=== PATIENT | female | born 1940 | race Caucasian/White ===

== ENCOUNTER 2018-08-21 08:10 | Day surgery (SDC) | payer MEDICARE, OTHER ==
[~2018-08-21 08:10] MED LIST: BUPIVACAINE HCL 0.75% INJ/PF (7.5 MG/1 ML) 10 ML SDV OD PRN; CHONDR SU A NA/HYALUR INTRAOC KIT (SURGICARE) ONE; EPINEPHRINE INJ/PF 1 MG/1 ML AMPULE ONE; KETOROLAC TROMETHAMINE 0.45% 4 DROP/0.4 ML DROPERETTE OD PRN; LIDOCAINE 1% INJ-PF (10 MG/ML) 30 ML SDV ONE; LIDOCAINE 4% INJ/PF (40 MG/ML) 5 ML AMPUL OD PRN
[2018-08-21] MEDS: TETRACAINE HCL 0.5% OPH SOLN 0.6 ML DROPERETTE OD PRN ×2 (09:15→09:42)
[2018-08-21] MEDS: CYCLOPENTOLATE 0.2%/PHENYLEPHRINE 1% OPH SOLN 2 ML OD PRN ×3 (09:15→09:35)
[2018-08-21] MEDS: BESIFLOXACIN HCL 0.6% OPH SUSP 5 ML BOTTLE OD PRN ×4 (09:15→10:20)
[2018-08-21] MEDS: TROPICAMIDE 1% OPH SOLN 3 ML OD PRN ×3 (09:15→09:35)
[2018-08-21] MEDS ORDERED: MIDAZOLAM 2 MG/2 ML INJ ONE (09:31)
[2018-08-21] MEDS ORDERED: FENTANYL CITRATE INJ/PF 100 MCG/2 ML AMPUL ONE (09:31)
[2018-08-21] MEDS: DORZOLAMIDE HCL 2%/TIMOLOL MALEAT 0.5% OPH SOLN 10 ML OD PRN ×2 (10:20)
--- NOTE | 2018-08-21 12:03 | [facility] DISCHARGE SUMMARY E ---
[facility] Discharge Summary NAME: KILO CAVAZOS AGE: 77Y ADMITTED: 08/21/2018 DISCHARGED: 08/21/2018 HOSPITAL COURSE: The patient is a 77-year-old lady who underwent uneventful cataract extraction with intraocular lens implant, right eye, on 08/21/2018. She will be discharged to home. She is instructed to resume preoperative medications, take Tylenol as needed for discomfort, to keep her eye shielded, to use Durezol, ketorolac and Besivance at 3 p.m. and 8 p.m., and to follow up in my office in 1 day. DICTATING PHYSICIAN: SHELIA SOSA M.D. [id number] PHY#: [id number] ID: [id number] JOB#: [id number] ACCT: [id number] cc:SHELIA SOSA M.D. >
--- NOTE | 2018-08-21 12:03 | [facility] OPERATIVE REPORT E ---
[facility] Operative Report NAME: KILO CAVAZOS AGE: 77Y DATE OF SURGERY: 08/21/2018 ROOM: PREOPERATIVE DIAGNOSIS: CATARACT, RIGHT EYE. POSTOPERATIVE DIAGNOSIS: CATARACT, RIGHT EYE. OPERATION: Phacoemulsification with posterior chamber intraocular lens, right eye. SURGEON: SHELIA SOSA M.D. ANESTHESIA: Topical with MAC. INDICATIONS FOR SURGERY: Difficulty reading piano music. PROCEDURE: The patient was brought to the Operating Room and placed on the operative table. Following tetracaine drops, topical anesthesia was administered. This consisted of instrument wipe pledgets soaked in a solution of 4% Xylocaine mixed with 0.75% Marcaine in a 1:2 ratio. A 2 x 1 cm pledget was placed in the superior fornix. A 1 x 1 cm pledget was placed in the inferior fornix. The eye was patched shut for 5 minutes. The patch was removed. The eye was sterilely prepped and draped in the usual manner. Lid speculum was placed in the eye. The pledgets were removed. 4-0 black silk sutures were placed around the superior and the inferior rectus muscles to be used as traction. A conjunctival peritomy was made at the 10 o'clock position. Hemostasis was obtained with bipolar cautery. A posterior limbal groove was created using a crescent knife and dissected anteriorly towards the cornea. A sharp point blade was used to create a paracentesis site at the 2 o'clock position. A 2.4 mm keratome was used to enter the anterior chamber through the groove. Viscoelastic was injected into the anterior chamber. An anterior capsulotomy was performed using Utrata forceps in a capsulorrhexis fashion. Hydrodissection and hydrodelineation were performed. Phacoemulsification was performed in azzzgr-nlf-ybcllrk technique. A total of 6.42 CDE phaco time was used. Following this, the I/A unit was used to remove residual cortex. Viscoelastic was injected into the capsular bag. Intraocular lens model ZCBOO, 16.0 diopters, serial number [id number] was placed in the capsular bag. The I/A unit was used to remove residual viscoelastic. The wound was seen to be watertight under high and low pressure, and no sutures were placed. The intraocular lens was well centered. The pressure was adjusted in the eye to normal pressure. The 4-0 black silk sutures and lid speculum were removed. The eye was shielded after Besivance drops were placed. The patient tolerated the procedure well and was sent to the Recovery Room in good condition. DICTATING PHYSICIAN: SHELIA SOSA M.D. DICTATING PHYSICIAN: SHELIA SOSA M.D. [id number] PHY#: [id number] ID: [id number] JOB#: [id number] ACCT: [id number] cc:SHELIA SOSA M.D. >
== END 2018-08-21 10:58 | disposition home or self-care (01) ==
LOC: SC 08:10
PROVIDERS: ATTEND Ophthalmology
DX: H25.813 Combined forms of age-related cataract, bilateral (principal); H40.1131 Primary open-angle glaucoma, bilateral, mild stage; H52.4 Presbyopia; Z79.82 Long term (current) use of aspirin; Z79.899 Other long term (current) drug therapy
CPT/HCPCS: 66984; V2632; J2250; J3490 ×4; A9270; J0171; J3010; 142

== ENCOUNTER 2018-09-18 09:46 | Day surgery (SDC) | payer MEDICARE, OTHER ==
[~2018-09-18 09:46] MED LIST changes: -BUPIVACAINE HCL 0.75% INJ/PF (7.5 MG/1 ML) 10 ML SDV OD PRN; -CHONDR SU A NA/HYALUR INTRAOC KIT (SURGICARE) ONE; -EPINEPHRINE INJ/PF 1 MG/1 ML AMPULE ONE; -KETOROLAC TROMETHAMINE 0.45% 4 DROP/0.4 ML DROPERETTE OD PRN; +KETOROLAC TROMETHAMINE 0.45% 4 DROP/0.4 ML DROPERETTE OS PRN; -LIDOCAINE 1% INJ-PF (10 MG/ML) 30 ML SDV ONE; -LIDOCAINE 4% INJ/PF (40 MG/ML) 5 ML AMPUL OD PRN
[2018-09-18] MEDS: TROPICAMIDE 1% OPH SOLN 3 ML OS PRN ×3 (10:33→10:52)
[2018-09-18] MEDS: CYCLOPENTOLATE 0.2%/PHENYLEPHRINE 1% OPH SOLN 2 ML OS PRN ×3 (10:33→10:52)
[2018-09-18] MEDS: BESIFLOXACIN HCL 0.6% OPH SUSP 5 ML BOTTLE OS PRN ×4 (10:34→11:35)
[2018-09-18] MEDS: TETRACAINE HCL 0.5% OPH SOLN 0.6 ML DROPERETTE OS PRN ×2 (10:35→10:53)
[2018-09-18] MEDS ORDERED: MIDAZOLAM 2 MG/2 ML INJ ONE (10:48)
[2018-09-18] MEDS ORDERED: FENTANYL CITRATE INJ/PF 100 MCG/2 ML AMPUL ONE (10:48)
[2018-09-18] MEDS: LIDOCAINE 4% INJ/PF (40 MG/ML) 5 ML AMPUL OS PRN ×2 (11:02)
[2018-09-18] MEDS: BUPIVACAINE HCL 0.75% INJ/PF (7.5 MG/1 ML) 10 ML SDV OS PRN ×2 (11:02)
[2018-09-18] MEDS: LIDOCAINE 1% INJ-PF (10 MG/ML) 30 ML SDV ONE ×2 (11:20)
[2018-09-18] MEDS: EPINEPHRINE INJ/PF 1 MG/1 ML AMPULE ONE ×2 (11:20)
[2018-09-18] MEDS: CHONDR SU A NA/HYALUR INTRAOC KIT (SURGICARE) ONE ×2 (11:20)
[2018-09-18] MEDS: DORZOLAMIDE HCL 2%/TIMOLOL MALEAT 0.5% OPH SOLN 10 ML OS PRN ×2 (11:35)
--- NOTE | 2018-09-18 12:43 | [facility] DISCHARGE SUMMARY E ---
[facility] Discharge Summary NAME: KILO CAVAZOS AGE: 77Y ADMITTED: 09/18/2018 DISCHARGED: 09/18/2018 HOSPITAL COURSE: The patient is a 77-year-old lady who underwent uneventful cataract extraction with intraocular lens implant left eye on 09/18/2018. She will be discharged to home. She is instructed to resume preoperative medications, to take Tylenol as needed for discomfort, to keep her eye shielded, to use Durezol, ketorolac, and Besivance at 3 p.m. and 8 p.m., and to follow up in my office in 1 day. DICTATING PHYSICIAN: SHELIA SOSA M.D. [id number] PHY#: [id number] ID: [id number] JOB#: [id number] ACCT: [id number] cc:SHELIA SOSA M.D. >
--- NOTE | 2018-09-18 12:43 | [facility] OPERATIVE REPORT E ---
[facility] Operative Report NAME: KILO CAVAZOS AGE: 77Y DATE OF SURGERY: 09/18/2018 ROOM: PREOPERATIVE DIAGNOSIS: Cataract, left eye. POSTOPERATIVE DIAGNOSIS: Cataract, left eye. OPERATION: Phacoemulsification with posterior chamber intraocular lens, left eye. SURGEON: SHELIA SOSA M.D. ANESTHESIA: Topical with MAC. PROCEDURE: The patient was brought to the Operating Room and placed on the operative table. Following tetracaine drops, topical anesthesia was administered. This consisted of instrument wipe pledgets soaked in a solution of 4% Xylocaine mixed with 0.75% Marcaine in a 1:2 ratio. A 2 x 1 cm pledget was placed in the superior fornix. A 1 x 1 cm pledget was placed in the inferior fornix. The eye was patched shut for 5 minutes. The patch was removed. The eye was sterilely prepped and draped in the usual manner. Lid speculum was placed in the eye. The pledgets were removed. 4-0 black silk sutures were placed around the superior and the inferior rectus muscles to be used as traction. A conjunctival peritomy was made at the 10 o'clock position. Hemostasis was obtained with bipolar cautery. A posterior limbal groove was created using a crescent knife and dissected anteriorly towards the cornea. A sharp point blade was used to create a paracentesis site at the 2 o'clock position. A 2.4 mm keratome was used to enter the anterior chamber through the groove. Viscoelastic was injected into the anterior chamber. An anterior capsulotomy was performed using Utrata forceps in a capsulorrhexis fashion. Hydrodissection and hydrodelineation were performed. Phacoemulsification was performed in bxiptt-kuc-focprfn technique. A total of 4.3 CDE phaco time was used. Following this, the I/A unit was used to remove residual cortex. Viscoelastic was injected into the capsular bag. Intraocular lens model ZCB00, 17.0 diopters, serial number [id number] was placed in the capsular bag. The I/A unit was used to remove residual viscoelastic. The wound was seen to be watertight under high and low pressure, and no sutures were placed. The intraocular lens was well centered. The pressure was adjusted in the eye to normal pressure. The 4-0 black silk sutures and lid speculum were removed. The eye was shielded after Besivance drops were placed. The patient tolerated the procedure well and was sent to the Recovery Room in good condition. DICTATING PHYSICIAN: SHELIA SOSA M.D. [id number] PHY#: [id number] ID: [id number] JOB#: [id number] ACCT: [id number] cc:SHELIA SOSA M.D. >
== END 2018-09-18 12:23 | disposition home or self-care (01) ==
LOC: SC 09:46
PROVIDERS: ATTEND Ophthalmology
DX: H25.812 Combined forms of age-related cataract, left eye (principal); Z96.1 Presence of intraocular lens; H40.1131 Primary open-angle glaucoma, bilateral, mild stage; K21.9 Gastro-esophageal reflux disease without esophagitis; Z79.899 Other long term (current) drug therapy; Z79.82 Long term (current) use of aspirin
CPT/HCPCS: 66984; V2632; J2250; J3490 ×4; A9270; J0171; J3010; 142

== ENCOUNTER 2020-02-24 09:38 | Inpatient (IN) | payer MEDICARE, OTHER ==
[2020-02-24] MEDS ORDERED: METHYLPREDNISOLONE INJ 125 MG/2 ML SDV IV ONE (09:49)
[2020-02-24 10:11] LABS: ABSOLUTE BASOPHILS # (AUTO) 0.1 10^3/uL (0.0-0.2); ABSOLUTE EOSINOPHILS # (AUTO) 0.4 10^3/uL (0.0-0.6); ABSOLUTE LYMPHOCYTES (AUTO) 1.6 10^3/uL (0.5-4.7); BASOPHILS % (AUTO) 0.9 % (0-2); EOSINOPHILS % (AUTO) 5.4 % (0-6); HEMATOCRIT 41.2 % (36.0-47.0); HEMOGLOBIN 13.8 g/dL (12.0-15.5); LYMPHOCYTES % (AUTO) 20.2 % (13-45); MEAN CORPUSCULAR HEMOGLOBIN 29.1 pg (27.0-33.4); MEAN CORPUSCULAR HGB CONC 33.5 g/dL (32.0-36.0); MEAN CORPUSCULAR VOLUME 87 fl (80-97); MONOCYTES % (AUTO) 11.9 % (3-13); PLATELET COUNT 315 10^3/uL (150-450); RED BLOOD COUNT 4.75 10^6/uL (3.72-5.28); SEGMENTED NEUTROPHILS % (AUTO) 61.6 % (42-78); TOTAL CELLS COUNTED % (AUTO) 100 %; WHITE BLOOD COUNT 8.1 10^3/uL (4.0-10.5)
--- NOTE | 2020-02-24 10:23 | ER Document Report ---
Entered by STEVIE SALINAS SCRIBE 02/24/20 0945 Acting as scribe for:LUKE LINDSAY MD ED Eye Complaint - General Chief Complaint: Loss of Vision Stated Complaint: NO VISION/LEFT EYE Primary Care Provider: NERY RANDALL MD [Primary Care Provider] - Follow up as needed Mode of Arrival: Ambulatory Information source: Patient Notes: This 79 year old female patient presents to the emergency department today with complaints of a x7-10 day history of floaters in her left eye. She reports that when she went to bed on (02/19) her vision other than the floaters was normal. When she woke up on Monday (02/20) her vision had started to go away and by that afternoon it was completely gone and has remained gone. She does mention that last week she noticed that she had some left sided jaw pain when eating cereal but she denies any other pain. She was seen by her diffuser operator Dr. Elba Ha this morning who sent her to the emergency room for probable temporal arteritis with recommendations for Solu-Medrol 250 mg IV every 6 for 3 days and hospitalist admission. She will consult on the patient. She requested that the patient have the temporal artery biopsy. TRAVEL OUTSIDE OF THE [place] IN LAST 30 DAYS: No - Related Data Allergies/Adverse Reactions: bacitracin [Bacitracin] Allergy (Unknown, Verified 09/17/18 13:57) gramicidin D [From Neosporin] Allergy (Verified 09/12/18 13:22) polymyxin B [From Neosporin] Allergy (Verified 09/12/18 13:22) Past Medical History - General Information source: Patient - Social History Smoking Status: Never Smoker Cigarette use (# per day): No Frequency of alcohol use: None Drug Abuse: None Occupation: retired Lives with: Family Family History: Reviewed & Not Pertinent GI Medical History: Reports: Hx Hiatal Hernia Past Surgical History: Reports: Hx Hysterectomy, Hx Orthopedic Surgery - Right ankle, Hx Tonsillectomy, Other - Benign carotid mass disection. Cataract surgery. Review of Systems - Review of Systems Constitutional: No symptoms reported EENT: See HPI, Other - Left eye vision loss Cardiovascular: No symptoms reported Respiratory: No symptoms reported Gastrointestinal: No symptoms reported Genitourinary: No symptoms reported Female Genitourinary: No symptoms reported Musculoskeletal: No symptoms reported Skin: No symptoms reported Hematologic/Lymphatic: No symptoms reported Neurological/Psychological: No symptoms reported -: Yes All other systems reviewed and negative Physical Exam - Notes Notes: Physical Exam: General: Alert, appears well. HEENT: Normocephalic. Atraumatic. Pupils are dilated bilaterally which was done at her eye doctor prior to arrival. Extraocular movements intact. Oropharynx clear. No tenderness with palpation over the temporal artery. No carotid bruits. Neck: Supple. Non-tender. Respiratory: No respiratory distress. Clear and equal breath sounds bilaterally. Cardiovascular: Regular rate and rhythm. Abdominal: Normal Inspection. Non-tender. No distension. Normal Bowel Sounds. Back: No gross abnormalities. Extremities: Moves all four extremities. Upper extremities: Normal inspection. Normal ROM. Lower extremities: Normal inspection. No edema. Normal ROM. Neurological: Normal cognition. AAOx4. Normal speech. Psychological: Normal affect. Normal Mood. Skin: Warm. Dry. Normal color. Course - Laboratory Result Diagrams: 02/24/20 09:50 02/24/20 09:50 Laboratory results interpreted by me: 02/24/20 02/24/20 02/24/20 09:50 09:50 10:07 ESR 49 H Sodium 136.3 L Creatinine 0.50 L Glucose 115 H C-Reactive Protein 37.5 H Urine Blood SMALL H - EKG Interpretation by Me EKG shows normal: Sinus rhythm, [place], Intervals, ST-T Waves. abnormal: QRS Complexes - Borderline R wave progression in the anterior leads Rate: Normal - 80 Rhythm: NSR [place]/QRS: Left axis deviation - Borderline left axis deviation Discharge - Discharge Clinical Impression: Vision loss of left eye, Jaw claudication, Temporal arteritis Condition: Stable Disposition: ADMITTED INPATIENT Admitting Provider: Elena (Hospitalist) Unit Admitted: Telemetry Referrals: NERY RANDALL MD [Primary Care Provider] - Follow up as needed I personally performed the services described in the documentation, reviewed and edited the documentation which was dictated to the scribe in my presence, and it accurately records my words and actions.
[2020-02-24 10:36] LABS: APPEARANCE,URINE CLEAR; BILIRUBIN,URINE NEGATIVE (NEGATIVE); COLOR,URINE STRAW; GLUCOSE, URINE NEGATIVE (NEGATIVE); KETONES,URINE NEGATIVE (NEGATIVE); LEUKOCYTE ESTERASE,URINE NEGATIVE (NEGATIVE); NITRITE,URINE NEGATIVE (NEGATIVE); PROTEIN,URINE NEGATIVE (NEGATIVE); URINE SPECIFIC GRAVITY 1.003; UROBILINOGEN,URINE NEGATIVE mg/dL (<2.0)
[2020-02-24 10:42] LABS: ALBUMIN 4.1 g/dL (3.5-5.0); ALKALINE PHOSPHATASE 106 U/L (38-126); ANION GAP 9 (5-19); ASPARTATE AMINO TRANSFERASE 26 U/L (14-36); BILIRUBIN,TOTAL 0.5 mg/dL (0.2-1.3); BLOOD UREA NITROGEN 11 mg/dL (7-20); CALCIUM 9.3 mg/dL (8.4-10.2); CARBON DIOXIDE 29 mmol/L (22-30); CHLORIDE 98 mmol/L (98-107); CREATINE KINASE 34 U/L (30-135); GLUCOSE 115 mg/dL (75-110); POTASSIUM 4.2 mmol/L (3.6-5.0); TOTAL PROTEIN 7.8 g/dL (6.3-8.2)
[2020-02-24 10:50] LABS: ERYTHROCYTE SEDIMENTATION RATE 49 mm/hr (0-30)
--- NOTE | 2020-02-24 11:01 | RADIOLOGY REPORT (SQ) ---
EXAM DESCRIPTION: CHEST SINGLE VIEW IMAGES COMPLETED DATE/TIME: 02/24/2020 10:52 am REASON FOR STUDY: Temporal arteritis COMPARISON: None. EXAM PARAMETERS: NUMBER OF VIEWS: One view. TECHNIQUE: Single frontal radiographic view of the chest acquired. RADIATION DOSE: NA LIMITATIONS: None. FINDINGS: LUNGS AND PLEURA: Mild hyperexpansion. Probable chronic changes in the lung bases. Minim al superimposed atelectasis in the left base cannot be excluded. No focal consolidation. No pneumot horax or effusion. MEDIASTINUM AND HILAR STRUCTURES: No masses. Contour normal. HEART AND VASCULAR STRUCTURES: Heart normal in size. Normal vasculature. BONES: No acute findings. HARDWARE: None in the chest. OTHER: No other significant finding. IMPRESSION: Mild hyperexpansion with probable chronic pleural and parenchymal changes in the left ba se. Minimal superimposed left basilar atelectasis cannot be excluded. TECHNICAL DOCUMENTATION: JOB ID: [id number] 2010 [employer]- All Rights Reserved Reading location - IP/workstation name: [email or web address]
[2020-02-24 11:48] LABS: C-REACTIVE PROTEIN 37.5 mg/L (<10.0)
[2020-02-24] MEDS ORDERED: ACETAMINOPHEN 325 MG TABLET PO PRN ×2 (12:54→18:02)
[2020-02-24] MEDS ORDERED: ONDANSETRON HCL INJ/PF 4 MG/2 ML SDV IV PRN (12:54)
--- NOTE | 2020-02-24 13:23 | PDOC H&P ---
History of Present Illness Admission Date/PCP: NERY RANDALL MD Patient complains of: Left eye blindness History of Present Illness: KILO CAVAZOS is a 79 year old female With history of gastric with reflux disease, glaucoma came to the emergency room with complaints of left eye blindness started on Monday. Patient went to bed on night without any problems except for floaters in the left eye woke up on Monday morning with deterioration of the vision in the left eye. By the afternoon vision in the left eye is completely gone. Patient waiting till this morning to see the ballet professor and Dr. Darcie Ha referred the patient to the hospital for admission and possible biopsy of the temporal artery tomorrow. ESR is 49. Patient denies any pain denies any tenderness over the scalp region only complaint is left eye blindness. She has minimal left jaw pain few days ago. Denies any headaches dizziness nausea vomiting's. She never had this problem before. Past medical history include glaucoma and a gastroesophageal reflux disease. Past Medical History Cardiac Medical History: Denies: Myocardial Infarction, Hypertension Pulmonary Medical History: Denies: Asthma Neurological Medical History: Denies: Seizures Renal/ Medical History: Reports: None GI Medical History: Reports: Hiatal Hernia Denies: Hepatitis Psychiatric Medical History: Reports: None Traumatic Medical History: Reports: None Hematology: Denies: Anemia, Sickle Cell Disease Infectious Medical History: Reports: None Past Surgical History Past Surgical History: Reports: Hysterectomy, Orthopedic Surgery - Right ankle, Tonsillectomy, Other - Benign carotid mass disection. Cataract surgery. Denies: Amputation, Mastectomy, Pacemaker Social History Lives with: Family Smoking Status: Never Smoker Electronic Cigarette use?: No Hx Recreational Drug Use: No Hx Prescription Drug Abuse: No - Advance Directive Resuscitation Status: Full Code Family History Family History: Reviewed & Not Pertinent Parental Family History Reviewed: Yes Children Family History Reviewed: Yes Sibling(s) Family History Reviewed.: Yes Medication/Allergy Home Medications: Pantoprazole Sodium 40 mg PO QHS 08/17/18 Brimonidine Tartrate/Timolol [Combigan 0.2%-0.5% Eye Drops] 1 drop OS Q12 02/24/20 Allergies/Adverse Reactions: bacitracin [Bacitracin] Allergy (Unknown, Verified 02/24/20 12:33) gramicidin D [From Neosporin] Allergy (Verified 02/24/20 12:33) polymyxin B [From Neosporin] Allergy (Verified 02/24/20 12:33) lactose Adverse Reaction (Verified 02/24/20 12:33) Review of Systems Constitutional: ABSENT: fever(s) Eyes: PRESENT: visual disturbances, other - Left eye blindness Nose, Mouth, and Throat: PRESENT: mouth pain, sore throat Cardiovascular: ABSENT: edema, orthropnea, palpitations Respiratory: ABSENT: dyspnea, hemoptysis Neurological: ABSENT: abnormal gait, abnormal speech, confusion, dizziness, focal weakness, syncope Psychiatric: ABSENT: anxiety, depression, homidical ideation, suicidal ideation Endocrine: ABSENT: cold intolerance, heat intolerance, polydipsia, polyuria Physical Exam Vital Signs: Temp Pulse Resp BP Pulse Ox 11 L 146/79 H 96 02/24/20 13:01 02/24/20 13:00 02/24/20 13:01 Intake & Output 02/23/20 02/24/20 02/25/20 06:59 06:59 06:59 Weight 67 kg General appearance: PRESENT: no acute distress, cooperative, well-developed Head exam: PRESENT: atraumatic Eye exam: PRESENT: other - Dilated because of the medication patient received in the ophthalmology clinic left eye is completely blind. Mouth exam: PRESENT: moist, tongue midline Teeth exam: PRESENT: poor dentation Neck exam: ABSENT: carotid bruit, JVD, lymphadenopathy, thyromegaly Respiratory exam: PRESENT: decreased breath sounds Cardiovascular exam: PRESENT: RRR. ABSENT: diastolic murmur, rubs, systolic murmur GI/Abdominal exam: PRESENT: normal bowel sounds, soft. ABSENT: distended, guarding, mass, organolmegaly, rebound, tenderness Rectal exam: PRESENT: deferred Neurological exam: PRESENT: alert, awake, oriented to person, oriented to place, oriented to time, oriented to situation, CN II-XII grossly intact. ABSENT: motor sensory deficit Results Laboratory Results: 02/24/20 09:50 02/24/20 09:50 02/24/20 02/24/20 02/24/20 09:50 09:50 10:07 WBC 8.1 RBC 4.75 Hgb 13.8 Hct 41.2 MCV 87 MCH 29.1 MCHC 33.5 RDW 13.0 Plt Count 315 Seg Neutrophils % 61.6 Sodium 136.3 L Potassium 4.2 Chloride 98 Carbon Dioxide 29 Anion Gap 9 BUN 11 Creatinine 0.50 L Est GFR ( Amer) > 60 Glucose 115 H Calcium 9.3 Total Bilirubin 0.5 AST 26 Alkaline Phosphatase 106 C-Reactive Protein 37.5 H Total Protein 7.8 Albumin 4.1 Urine Color STRAW Urine Appearance CLEAR Urine pH 7.0 Ur Specific [place] 1.003 Urine Protein NEGATIVE Urine Glucose (UA) NEGATIVE Urine Ketones NEGATIVE Urine Blood SMALL H Urine Nitrite NEGATIVE Ur Leukocyte Esterase NEGATIVE Urine WBC (Auto) 0 Urine RBC (Auto) 0 02/24/20 02/24/20 09:50 09:50 Creatine Kinase 34 Troponin I < 0.012 Impressions: Chest X-Ray 02/24/20 10:00 IMPRESSION: Mild hyperexpansion with probable chronic pleural and parenchymal changes in the left base. Minimal superimposed left basilar atelectasis cannot be excluded. Assessment and Plan - Diagnosis (1) Temporal arteritis Is this a current diagnosis for this admission?: Yes Plan: 02/24/2020-patient is going to be admitted to telemetry as an inpatient for left- sided temporal arteritis and left eye blindness. Surgical consult was requested for biopsy, patient will be n.p.o. from midnight, patient is going to receive IV Solu-Medrol 125 mg every 6 hours, coronavirus testing will be done. Opht halmology consult was requested. Patient started on GI prophylaxis 40 mg every 12 hours. Patient will be with SCDs no pharmacological prophylaxis initiated because of the impending surgery tomorrow. Patient denies any pain at the time of my examination. Fall precautions are requested. Physical therapy consult was requested. (2) Vision loss of left eye Is this a current diagnosis for this admission?: Yes Plan: 02/24/2020-patient came in with acute left eye vision loss, ophthalmology consult was requested to arrange for the MRI of the brain without contrast, CT of the neck and head. Patient will be scheduled for temporal artery biopsy tomorrow. (3) GERD (gastroesophageal reflux disease) Is this a current diagnosis for this admission?: No Plan: Patient has history of gastroparesis reflux disease placed on 40 mg IV every 12 hours. - Time Anticipated Discharge Disposition: Home with Home Health Anticipated Discharge Timeframe: within 48 hours
--- NOTE | 2020-02-24 14:03 | RADIOLOGY REPORT (SQ) ---
EXAM DESCRIPTION: CTA HEAD IMAGES COMPLETED DATE/TIME: 02/24/2020 1:46 pm REASON FOR STUDY: lt eye blindness COMPARISON: None. TECHNIQUE: Axial images acquired through the brain without and with intravenous contrast. Images re viewed with bone, brain and subdural windows. Additional sagittal and coronal reconstructions were g enerated. Images stored on PACS. CT angio [place] was performed. Thin section postcontrast CT images were reviewed with maxim um intensity projected images of the [place] in multiple orientations. All CT scanners at this facility use dose modulation, iterative reconstruction, and/or weight based d osing when appropriate to reduce radiation dose to as low as reasonably achievable (ALARA). [facility]: Dose Right [facility]: CareDose [facility]: Dose Right [facility]: Teradose 4D [facility]: [employer] CONTRAST TYPE AND DOSE: 70 mL Omnipaque 350- low osmolar. RENAL FUNCTION: BUN 11 creatinine 0.5 RADIATION DOSE: CT Rad equipment meets quality standard of care and radiation dose reduction techniq ues were employed. CTDIvol: 9.3 - 53.2 mGy. DLP: 1477 mGy-cm.. LIMITATIONS: None. FINDINGS: VENTRICLES: Normal size and contour. CEREBRUM: No masses. No hemorrhage. No midline shift. No evidence for acute infarction. Normal gra y/white matter differentiation. No areas of low density in the white matter. CEREBELLUM: No masses. No hemorrhage. No alteration of density. No evidence for acute infarction. No enhancing lesions. EXTRA-AXIAL SPACES: No fluid collections. No enhancing lesions. ORBITS AND GLOBE: No intra- or extraconal masses. Normal contour of globe without masses. CALVARIUM: No fracture. PARANASAL SINUSES: No fluid or mucosal thickening. SOFT TISSUES: No mass or hematoma. OTHER: No other significant finding. CTA COW: [place]: The anterior, middle, posterior cerebral arteries are all patent. No evidence of a neurysm or focal stenosis. POSTERIOR CIRCULATION: The distal vertebral arteries are patent as is the basilar artery. No aneurysm . OTHER: No other significant finding. IMPRESSION: NORMAL BRAIN CT WITH AND WITHOUT CONTRAST. NO CTA EVIDENCE OF STENOSIS OR ANEURYSM OF THE [place]. EVIDENCE OF ACUTE STROKE: NO. TECHNICAL DOCUMENTATION: JOB ID: [id number] Quality ID # [id number]: Final reports with documentation of one or more dose reduction techniques (e.g., Au tomated exposure control, adjustment of the mA and/or kV according to patient size, use of iterative reconstruction technique) 2010 [employer]- All Rights Reserved Reading location - IP/workstation name: [email or web address]
--- NOTE | 2020-02-24 14:09 | RADIOLOGY REPORT (SQ) ---
EXAM DESCRIPTION: CTA NECK IMAGES COMPLETED DATE/TIME: 02/24/2020 1:46 pm REASON FOR STUDY: lt eye blindness COMPARISON: None. TECHNIQUE: Axial dynamic scanning technique with dynamic contrast enhancement through the extra-lifts and cranes inspector nial carotid and vertebral arteries. Multiplanar reconstruction. 3-D MIPS and Volume-rendered imag es acquired at the workstation and saved to PACS. Images are reviewed in soft tissue, bone, lung w indows. All CT scanners at this facility use dose modulation, iterative reconstruction, and/or weight based d osing when appropriate to reduce radiation dose to as low as reasonably achievable (ALARA). [facility]: Dose Right [facility]: CareDose [facility]: Dose Right [facility]: Teradose 4D [facility]: [employer] CONTRAST TYPE AND DOSE: contrast/concentration: Isovue 350.00 mmol/ml; Total Contrast Delivered: 70. 0 ml; Total Saline Delivered: 75.0 ml RENAL FUNCTION: BUN 11 creatinine 0.5 LIMITATIONS: None. FINDINGS: AORTIC ARCH: Normal three-vessel origin. Bilateral subclavian arteries are patent. No d issection. RIGHT CAROTIDS: Patent common, internal and external carotid arteries without suggestion of significa nt stenosis or irregular plaque. No dissection. There is some tortuosity of the ICA. RIGHT VERTEBRAL: Patent. No dissection. LEFT CAROTIDS: Patent common, internal and external carotid arteries without suggestion of significan t stenosis or irregular plaque. No dissection. There is some tortuosity of the ICA. LEFT VERTEBRAL: Patent. No dissection. OTHER: No other significant finding. OTHER: 3-D reconstructions confirm findings. IMPRESSION: NORMAL CTA OF THE EXTRA-CRANIAL CAROTID AND VERTEBRAL ARTERIES. COMMENT: Quality ID #[id number]: Measurements of distal internal carotid diameter were used as the denomina tor for stenosis measurement. TECHNICAL DOCUMENTATION: JOB ID: [id number] Quality ID # [id number]: Final reports with documentation of one or more dose reduction techniques (e.g., Au tomated exposure control, adjustment of the mA and/or kV according to patient size, use of iterative reconstruction technique) 2010 [employer]- All Rights Reserved Reading location - IP/workstation name: [email or web address]
[2020-02-24] MEDS: DEXTROSE 5%-NORMAL SALINE 1,000 ML IV PRN (14:55)
[2020-02-24] MEDS ORDERED: LIDOCAINE 0.5%/EPINEPHRINE INJ 50 ML VIAL INJ PRN (16:32)
[2020-02-24] MEDS ORDERED: LIDOCAINE 0.5% INJ-PF (5 MG/ML) 50 ML SDV INJ PRN (16:39)
[2020-02-24] MEDS ORDERED: METHYLPREDNISOLONE INJ 40 MG/1 ML SDV IV SCH ×2 (18:00)
[2020-02-24] MEDS: METHYLPREDNISOLONE INJ 125 MG/2 ML SDV IV SCH (18:40)
[2020-02-24] MEDS: ACETAMINOPHEN 325 MG TABLET PO PRN ×2 (18:40→22:57)
--- NOTE | 2020-02-24 20:24 | Operative Report ---
Operative Report DATE OF SURGERY: 02/24/20 PREOPERATIVE DIAGNOSIS: Left temporal arteritis POSTOPERATIVE DIAGNOSIS: Same OPERATION: Left temporal artery biopsy SURGEON: ALAN POWELL ANESTHESIA: Local TISSUE REMOVED OR ALTERED: Temporal artery COMPLICATIONS: None ESTIMATED BLOOD LOSS: 5 cc QUANTITATIVE BLOOD LOSS: 5 INTRAOPERATIVE FINDINGS: The artery had some thickening on one end and appears suspicious for arthritis PROCEDURE: After informed consent was obtained patient was placed in supine position with the face turned to the right exposing the left side. A piece of gauze was placed on the left external ear and the area in front of the ear was then prep ped and draped in the usual sterile fashion. Local anesthesia was then infiltrated over the palpated pulsation of the temporal artery. A vertical incision was made about 1 inch long. The artery was gently dissected. The more superior part of the artery appears to be soft but the caudal side appears to be thickened. A at least a 2 cm long part of the artery was then clamped on each side and divided. Specimen was palpated noted to be firm on the caudal and. This is suspicious for arteritis. The 2 ends of the artery were then suture ligated with 2-0 Vicryl. The wound was then closed with running subcuticular closure using 4-0 Vicryl. Steri-Strips placed over the operative site. Needle instrument sponge count were all correct. Patient tolerated procedure well.
--- NOTE | 2020-02-24 21:24 | EKG REPORT ---
SEVERITY:- BORDERLINE ECG - SINUS RHYTHM BORDERLINE LEFT AXIS DEVIATION BORDERLINE R WAVE PROGRESSION, ANTERIOR LEADS IRBBB : Confirmed by: Venice Toledo 24-Feb-2020 21:24:17
[2020-02-24] MEDS: TIMOLOL MALEATE 0.5% OPH SOLN 5 ML OS SCH (22:13)
[2020-02-24] MEDS: PANTOPRAZOLE SODIUM 40 MG VIAL IV SCH (22:14)
[2020-02-24] MEDS: BRIMONIDINE TARTRATE 0.2% OPH SOLN 5 ML OS SCH (22:15)
[2020-02-25] MEDS: METHYLPREDNISOLONE INJ 125 MG/2 ML SDV IV SCH ×4 (00:42→18:34)
[2020-02-25 05:29] LABS: ABSOLUTE LYMPHOCYTES (AUTO) 1.3 10^3/uL (0.5-4.7); ABSOLUTE MONOCYTES (AUTO) 0.2 10^3/uL (0.1-1.4); ABSOLUTE NEUT (AUTO) 10.8 10^3/uL (1.7-8.2); BASOPHILS % (AUTO) 0.2 % (0-2); HEMATOCRIT 37.3 % (36.0-47.0); HEMOGLOBIN 12.6 g/dL (12.0-15.5); LYMPHOCYTES % (AUTO) 10.2 % (13-45); MEAN CORPUSCULAR HEMOGLOBIN 28.8 pg (27.0-33.4); MEAN CORPUSCULAR HGB CONC 33.7 g/dL (32.0-36.0); MEAN CORPUSCULAR VOLUME 85 fl (80-97); MONOCYTES % (AUTO) 1.7 % (3-13); PLATELET COUNT 294 10^3/uL (150-450); RED BLOOD COUNT 4.37 10^6/uL (3.72-5.28); RED CELL DISTRIBUTION WIDTH 13.3 % (11.5-14.0); SEGMENTED NEUTROPHILS % (AUTO) 87.9 % (42-78); TOTAL CELLS COUNTED % (AUTO) 100 %; WHITE BLOOD COUNT 12.3 10^3/uL (4.0-10.5)
[2020-02-25 05:32] LABS: INTERNATIONAL RATION (INR) 1.09; PROTHROMBIN TIME 14.3 SEC (11.4-15.4)
[2020-02-25 05:51] LABS: ALBUMIN 3.5 g/dL (3.5-5.0); ALKALINE PHOSPHATASE 83 U/L (38-126); ANION GAP 9 (5-19); ASPARTATE AMINO TRANSFERASE 21 U/L (14-36); BILIRUBIN,TOTAL 0.3 mg/dL (0.2-1.3); BLOOD UREA NITROGEN 15 mg/dL (7-20); CALCIUM 8.7 mg/dL (8.4-10.2); CARBON DIOXIDE 26 mmol/L (22-30); CHLORIDE 105 mmol/L (98-107); CHOLESTEROL 133.86 mg/dL (0-200); GLUCOSE 176 mg/dL (75-110); POTASSIUM 4.1 mmol/L (3.6-5.0); TOTAL PROTEIN 6.9 g/dL (6.3-8.2); TRIGLYCERIDES 33 mg/dL (<150)
[2020-02-25 06:02] LABS: DIRECT LDL 56 mg/dL (<100)
[2020-02-25] MEDS: PANTOPRAZOLE SODIUM 40 MG VIAL IV SCH ×2 (09:09→23:26)
[2020-02-25] MEDS: BRIMONIDINE TARTRATE 0.2% OPH SOLN 5 ML OS SCH (09:10)
[2020-02-25] MEDS: TIMOLOL MALEATE 0.5% OPH SOLN 5 ML OS SCH ×2 (15:25→23:51)
--- NOTE | 2020-02-25 16:33 | PDOC PROGRESS REPORT ---
Subjective Progress Note for:: 02/25/20 Subjective:: 02/25/2020 Patient admitted for left eye blindness with unclear etiology. Suspected left temporal arteritis and biopsy was done which is pending. Patient started on methylprednisolone IV. Possible patient has experienced an embolic event of cardiogenic origin, echocardiogram ordered today. Patient denies any history of atrial fibrillation or other arrhythmias. She denies taking any anticoagulants. Patient does endorse some bilateral jaw claudication over the past few weeks. Other than left eye blindness she has no new complaints. Of note, she is able to see very bright light when it is shined directly into her left eye, otherwise she is completely blind in this eye. Reportedly, ophthalmology is planning to see the patient today. Reason For Visit: VISION LOSS OF LEFT EYE,JAW CLAUDICATION Physical Exam Vital Signs: Temp Pulse Resp BP Pulse Ox 98.3 F 87 19 141/68 H 97 02/25/20 11:44 02/25/20 11:44 02/25/20 11:44 02/25/20 11:44 02/25/20 11:44 Intake & Output 02/24/20 02/25/20 02/26/20 06:59 06:59 06:59 Intake Total 250 610 Balance 250 610 Weight 70.5 kg General appearance: PRESENT: no acute distress, well-developed, well-nourished Head exam: PRESENT: atraumatic, normocephalic Eye exam: PRESENT: conjunctiva pink. ABSENT: PERRLA - Possible diminished response to light of left pupil, normal response on the right Mouth exam: PRESENT: moist Respiratory exam: PRESENT: clear to auscultation ab. ABSENT: rales, rhonchi, wheezes Cardiovascular exam: PRESENT: RRR. ABSENT: diastolic murmur, rubs, systolic murmur GI/Abdominal exam: PRESENT: normal bowel sounds, soft. ABSENT: distended, guarding, mass, organolmegaly, rebound, tenderness Neurological exam: PRESENT: alert, awake, oriented to person, oriented to place, oriented to time, oriented to situation Psychiatric exam: PRESENT: appropriate affect, normal mood Skin exam: PRESENT: dry, intact, warm Results Laboratory Results: 02/25/20 05:05 02/25/20 05:05 02/25/20 02/25/20 02/25/20 05:05 05:05 05:05 WBC 12.3 H RBC 4.37 Hgb 12.6 Hct 37.3 MCV 85 MCH 28.8 MCHC 33.7 RDW 13.3 Plt Count 294 Seg Neutrophils % 87.9 H Sodium 140.1 Potassium 4.1 Chloride 105 Carbon Dioxide 26 Anion Gap 9 BUN 15 Creatinine 0.48 L Est GFR ( Amer) > 60 Glucose 176 H Calcium 8.7 Magnesium 2.1 Total Bilirubin 0.3 AST 21 Alkaline Phosphatase 83 Total Protein 6.9 Albumin 3.5 Triglycerides 33 Cholesterol 133.86 LDL Cholesterol Direct 56 VLDL Cholesterol 7.0 L HDL Cholesterol 63 TSH 0.37 L 02/24/20 02/24/20 09:50 09:50 Creatine Kinase 34 Troponin I < 0.012 Impressions: Head CTA 02/24/20 00:00 IMPRESSION: NORMAL BRAIN CT WITH AND WITHOUT CONTRAST. NO CTA EVIDENCE OF STENOSIS OR ANEURYSM OF THE [place]. EVIDENCE OF ACUTE STROKE: NO. Neck CTA 02/24/20 00:00 IMPRESSION: NORMAL CTA OF THE EXTRA-CRANIAL CAROTID AND VERTEBRAL ARTERIES. Chest X-Ray 02/24/20 10:00 IMPRESSION: Mild hyperexpansion with probable chronic pleural and parenchymal changes in the left base. Minimal superimposed left basilar atelectasis cannot be excluded. Assessment and Plan - Diagnosis (1) Vision loss of left eye Is this a current diagnosis for this admission?: Yes Plan: 02/24/2020-patient came in with acute left eye vision loss, ophthalmology consult was requested to arrange for the MRI of the brain without contrast, CT of the neck and head. Patient will be scheduled for temporal artery biopsy tomorrow. 02/25/2020 Possible cardiogenic embolic source, echocardiogram ordered Telemetry to monitor for arrhythmias Ophthalmology consulted, to see patient today CT head/neck with contrast did not show any focal stenoses May benefit from rheumatology consult outpatient (2) GERD (gastroesophageal reflux disease) Is this a current diagnosis for this admission?: No Plan: Patient has history of gastroparesis reflux disease, given IV PPI. (3) Temporal arteritis Is this a current diagnosis for this admission?: Yes Plan: 02/24/2020-patient is going to be admitted to telemetry as an inpatient for left- sided temporal arteritis and left eye blindness. Surgical consult was requested for biopsy, patient will be n.p.o. from midnight, patient is going to receive IV Solu-Medrol 125 mg every 6 hours, coronavirus testing will be done. Ophthalmology consult was requested. Patient started on GI prophylaxis 40 mg every 12 hours. Patient will be with SCDs no pharmacological prophylaxis initiated because of the impending surgery tomorrow. Patient denies any pain at the time of my examination. Fall precautions are requested. Physical therapy consult was requested. 02/25/2020 Suspected diagnosis, biopsy done pending Methylprednisolone IV continues - Time Time Spent with patient: 15-24 minutes Medications reviewed and adjusted accordingly: Yes Anticipated Discharge Disposition: Home, Self Care Anticipated Discharge Timeframe: within 48 hours - Inpatient Certification Based on my medical assessment, after consideration of the patient's comorbidities, presenting symptoms, or acuity I expect that the services needed warrant INPATIENT care.: Yes I certify that my determination is in accordance with my understanding of Medicare's requirements for reasonable and necessary INPATIENT services [42 CFR 412.3e].: Yes Medical Necessity: Significant Comorbidiites Make Outpatient Treatment Too Risky, Need Close Monitoring Due to Risk of Patient Decompensation, Risk of Complication if Not Cared For in Hospital, Risk of Diagnosis Which Will Require Inpatient Eval/Care/Monitoring
--- NOTE | 2020-02-25 17:19 | PDOC CONSULTATION ---
Consultation Consult Date: 02/25/20 Provider Consulted: SHELIA SOSA Consult reason:: Loss of vision History of Present Illness Admission Date/PCP: 02/24/20 13:11 REY KRUEGER MD History of Present Illness: KILO CAVAZOS is a 79 year old female Who presented with total loss of vision in her left eye 1 day ago to my office. She had been experiencing flashes and floaters over the last week and was examined on 02/20/2020 in my office with no new eye findings and normal vision in her left eye. On 814 she experienced total loss of vision in the left eye and contacted my office on 02/23. She denied headaches myalgias fever chills loss of appetite and weight loss. She did complain of mild jaw claudication with eating cereal over the last week. On examination she was found to have bare light perception vision in the left eye and normal vision in the right eye. 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 She was sent to the ER with a preliminary diagnosis of temporal arteritis and admitted to the hospital. ESR was 49 and CR P was 37.5 she has had a normal neck CTA and head CT while in the hospital. A temporal artery biopsy was performed today the results of which are pending. She was placed on an initial dose of 250 mg IV Solu-Medrol continued on 125 mg every 6 hours. Today she denies any pain or change in vision in her right eye her left eye vision continues to be poor and very light perception. She has no new neurologic complaints. Past Medical History Cardiac Medical History: Reports: None Denies: Myocardial Infarction, Hypertension Pulmonary Medical History: Reports: None Denies: Asthma EENT Medical History: Reports: Cataracts, Eyes - Mild primary open angle glaucoma on Combigan drops twice daily Neurological Medical History: Reports: None Denies: Seizures Endocrine Medical History: Reports: None Renal/ Medical History: Reports: None Malignancy Medical History: Reports: None GI Medical History: Reports: Gastroesophageal Reflux Disease, Hiatal Hernia Denies: Hepatitis Musculoskeltal Medical History: Reports: None Skin Medical History: Reports: None Psychiatric Medical History: Reports: None, Depression Traumatic Medical History: Reports: None Hematology: Reports: None Denies: Anemia, Sickle Cell Disease Infectious Medical History: Reports: None Past Surgical History Past Surgical History: Reports: Hysterectomy, Orthopedic Surgery - Right ankle, Tonsillectomy, Other - Benign carotid mass disection. Cataract surgery. Denies: Amputation, Mastectomy, Pacemaker Social History Lives with: Family Smoking Status: Never Smoker Electronic Cigarette use?: No Frequency of Alcohol Use: None Hx Recreational Drug Use: No Drugs: None Hx Prescription Drug Abuse: No - Advance Directive Resuscitation Status: Full Code Family History Family History: Reviewed & Not Pertinent Parental Family History Reviewed: Yes Children Family History Reviewed: Unknown Sibling(s) Family History Reviewed.: Unknown Medication/Allergy Home Medications: Pantoprazole Sodium 40 mg PO QHS 08/17/18 Brimonidine Tartrate/Timolol [Combigan 0.2%-0.5% Eye Drops] 1 drop OS Q12 02/24/20 Allergies/Adverse Reactions: bacitracin [Bacitracin] Allergy (Unknown, Verified 02/24/20 12:33) gramicidin D [From Neosporin] Allergy (Verified 02/24/20 12:33) polymyxin B [From Neosporin] Allergy (Verified 02/24/20 12:33) lactose Adverse Reaction (Verified 02/24/20 12:33) Physical Exam Vital Signs: Temp Pulse Resp BP Pulse Ox 98.3 F 87 19 141/68 H 97 02/25/20 11:44 02/25/20 11:44 02/25/20 11:44 02/25/20 11:44 02/25/20 11:44 Intake & Output 02/24/20 02/25/20 02/26/20 06:59 06:59 06:59 Intake Total 250 610 Balance 250 610 Weight 70.5 kg General appearance: PRESENT: no acute distress Head exam: PRESENT: normocephalic Eye exam: PRESENT: EOMI, other - Left APD, vision 20/25 OD near Results Laboratory Results: 02/25/20 05:05 02/25/20 05:05 02/25/20 02/25/20 02/25/20 05:05 05:05 05:05 WBC 12.3 H RBC 4.37 Hgb 12.6 Hct 37.3 MCV 85 MCH 28.8 MCHC 33.7 RDW 13.3 Plt Count 294 Seg Neutrophils % 87.9 H Sodium 140.1 Potassium 4.1 Chloride 105 Carbon Dioxide 26 Anion Gap 9 BUN 15 Creatinine 0.48 L Est GFR ( Amer) > 60 Glucose 176 H Calcium 8.7 Magnesium 2.1 Total Bilirubin 0.3 AST 21 Alkaline Phosphatase 83 Total Protein 6.9 Albumin 3.5 Triglycerides 33 Cholesterol 133.86 LDL Cholesterol Direct 56 VLDL Cholesterol 7.0 L HDL Cholesterol 63 TSH 0.37 L 02/24/20 02/24/20 09:50 09:50 Creatine Kinase 34 Troponin I < 0.012 Impressions: Head CTA 02/24/20 00:00 IMPRESSION: NORMAL BRAIN CT WITH AND WITHOUT CONTRAST. NO CTA EVIDENCE OF STENOSIS OR ANEURYSM OF THE [place]. EVIDENCE OF ACUTE STROKE: NO. Neck CTA 02/24/20 00:00 IMPRESSION: NORMAL CTA OF THE EXTRA-CRANIAL CAROTID AND VERTEBRAL ARTERIES. Chest X-Ray 02/24/20 10:00 IMPRESSION: Mild hyperexpansion with probable chronic pleural and parenchymal changes in the left base. Minimal superimposed left basilar atelectasis cannot be excluded. Assessment & Plan - Diagnosis (1) Temporal arteritis Is this a current diagnosis for this admission?: Yes Plan: I feel that this time that all diagnostic tests as well as labs and physical exam are consistent with a diagnosis of temporal arteritis. We are awaiting the pathology report of the temporal artery biopsy however even if this is negative I would continue with the presumptive diagnosis of temporal arteritis. due to he r severe vision loss the recommendation is for 250 mg of Solu-Medrol every 6 hours for 3 days followed by 80 mg of oral prednisone on discharge. I would like to see Ms. Eric hill in 1 week and sooner should she note any changes in her right eye. On discharge she will need to have follow-up with her primary care provider Rey Krueger and subsequently a rheumatology consult after discharge. Please contact me if you have any additional questions please schedule a follow-up appointment in my office [phone] for 1 week following discharge.
--- NOTE | 2020-02-25 17:59 | PDOC PROGRESS REPORT ---
Subjective Progress Note for:: 02/25/20 Subjective:: No pains from the preauricular incision site for temporal artery biopsy. Patient claims his vision in the left eye may be slightly better since he does not see all black but rather with some light. Reason For Visit: VISION LOSS OF LEFT EYE,JAW CLAUDICATION Physical Exam Vital Signs: Temp Pulse Resp BP Pulse Ox 98.3 F 87 19 141/68 H 97 02/25/20 11:44 02/25/20 11:44 02/25/20 11:44 02/25/20 11:44 02/25/20 11:44 Intake & Output 02/24/20 02/25/20 02/26/20 06:59 06:59 06:59 Intake Total 250 610 Balance 250 610 Weight 70.5 kg Exam: Operative site looks clean and dry with no swelling no redness. Steri-Strips in place. Results Laboratory Results: 02/25/20 05:05 02/25/20 05:05 02/25/20 02/25/20 02/25/20 05:05 05:05 05:05 WBC 12.3 H RBC 4.37 Hgb 12.6 Hct 37.3 MCV 85 MCH 28.8 MCHC 33.7 RDW 13.3 Plt Count 294 Seg Neutrophils % 87.9 H Sodium 140.1 Potassium 4.1 Chloride 105 Carbon Dioxide 26 Anion Gap 9 BUN 15 Creatinine 0.48 L Est GFR ( Amer) > 60 Glucose 176 H Calcium 8.7 Magnesium 2.1 Total Bilirubin 0.3 AST 21 Alkaline Phosphatase 83 Total Protein 6.9 Albumin 3.5 Triglycerides 33 Cholesterol 133.86 LDL Cholesterol Direct 56 VLDL Cholesterol 7.0 L HDL Cholesterol 63 TSH 0.37 L 02/24/20 02/24/20 09:50 09:50 Creatine Kinase 34 Troponin I < 0.012 Impressions: Head CTA 02/24/20 00:00 IMPRESSION: NORMAL BRAIN CT WITH AND WITHOUT CONTRAST. NO CTA EVIDENCE OF STENOSIS OR ANEURYSM OF THE [place]. EVIDENCE OF ACUTE STROKE: NO. Neck CTA 02/24/20 00:00 IMPRESSION: NORMAL CTA OF THE EXTRA-CRANIAL CAROTID AND VERTEBRAL ARTERIES. Chest X-Ray 02/24/20 10:00 IMPRESSION: Mild hyperexpansion with probable chronic pleural and parenchymal changes in the left base. Minimal superimposed left basilar atelectasis cannot be excluded. Assessment & Plan - Time Critical Time spent with patient: 15-24 minutes Anticipated Discharge Disposition: Home, Self Care Anticipated Discharge Timeframe: within 72 hours - Plan Summary Plan Summary: Patient is first postop day left temporal artery biopsy at bedside done under local anesthesia. Awaiting biopsy results. Patient started on IV steroids yesterday. We will sign off. I told the patient to be followed in the surgical clinic in 2weeks for wound check.
[2020-02-25] MEDS: DEXTROSE 5%-NORMAL SALINE 1,000 ML IV PRN (18:33)
--- NOTE | 2020-02-25 19:24 | XCELERA REPORT ---
[address] [address] Transthoracic Echocardiogram Report Name: KILO CAVAZOS Age: 79 yrs Gender: Female : 1940 Patient Status: Inpatient Patient Location: [address] [place], [place] [address] Study Date: 02/25/2020 09:25 AM Height: 64 in Weight: 155 lb BSA: 1.8 m2 Procedure: A complete two-dimensional transthoracic echocardiogram was performed (2D, M-mode, spectral and color flow Doppler). The study was technically adequate with some images being suboptimal in quality. Reason For Study: embolic cva Ordering Physician: ANASTACIO RICHARD Performed By: Mirian Wilson Interpretation Summary LEFT VENTRICLE: LV Systolic function: LVEF is felt to be within normal limits. Best estimate is approximately LVEF is 60 %. LV Diastolic Function: Grade II diastolic dysfunction noted. Wall motion : No definite regional wall motion abnormalities are noted. Left ventricular chamber size : is within normal limit. Left ventricular wall thickness : is increased indicative of Mild LVH. INTERVENTRICULAR SEPTUM: no evidence of VSD noted. No asymmetric hypertrophy noted. RIGHT VENTRICLE: RV systolic function : is felt to be within normal limit. Right Ventricle Size : borderline dilated. LEFT ATRIUM size : Within normal limit RIGHT ATRIUM size : is within normal limit. INTER ATRIAL SEPTUM : No definite atrial septal defect noted however a small PFO could be missed. AORTIC ROOT : seems to be within normal limits. Ascending aorta is not well visualized. INFERIOR VENA CAVA: was not well visualized. VALVES: MITRAL VALVE : Leaflets are mildly thickened. Mobility seems to be within normal limits. Mitral Regurgitation : Trace mitral regurgitation is noted. Mitral Stenosis: No mitral stenosis noted. Mitral valve prolapse : none noted. AORTIC VALVE: seems to be trileaflet with thickening but adequate excursion. Aortic stenosis : No aortic stenosis noted. Aortic regurgitation : No aortic incompetence noted. TRICUSPID VALVE : mobility and structures within normal limit. Tricuspid stenosis : no tricuspid stenosis noted. Tricuspid regurgitation : Trace tricuspid regurgitation noted. Estimated RVSP : tricuspid jet envelope not well defined to measure RV systolic pressure accurately. PULMONARY VALVE : was not well visualized but no significant abnormalities suspected. Pulmonary stenosis : no significant pulmonary stenosis noted. Pulmonary regurgitation : no significant pulmonary regurgitation noted. MASSES AND THROMBUS : No definite intracardiac thrombus or masses are noted. PERICARDIUM: No pericardial effusion was noted. IMPRESSION : 1. Normal LVEF. 2. Mild LVH noted. 3. Grade II Diastolic Dysfunction noted. 4. No significant valvular stenosis or regurgitation noted. 5. Low probability of cardiac source of embolism. However if clinical suspicion is high consider transesophageal echocardiogram. 6. Would recommend cardiac monitoring as an outpatient to rule out transient atrial fibrillation. MMode/2D Measurements & Calculations RVDd: 2.5 cm LVIDd: 4.2 cm FS: 31.9 % Ao root diam: 2.7 cm IVSd: 1.2 cm LVIDs: 2.8 cm EDV(Teich): 77.0 ml Ao root area: 5.9 cm2 LVPWd: 1.0 cm ESV(Teich): 30.5 ml EF(Teich): 60.4 % Doppler Measurements & Calculations MV E max tammy: MV dec slope: Ao V2 max: LV V1 max P.8 cm/sec 508.6 cm/sec2 147.3 cm/sec 4.2 mmHg MV A max tammy: MV dec time: 0.15 secAo max PG: LV V1 max: 122.6 cm/sec 8.7 mmHg 102.7 cm/sec MV E/A: 0.63 PA V2 max: TR max tammy: 90.9 cm/sec 243.6 cm/sec PA max P.3 mmHg TR max P.7 mmHg : ANASTACIO RICHARD Shyamal
[2020-02-25] MEDS ORDERED: METHYLPREDNISOLONE INJ 125 MG/2 ML SDV IV SCH (21:00)
[2020-02-26] MEDS: DEXTROSE 5% IV SCH ×5 (00:21→23:29)
[2020-02-26] MEDS: WATER IV SCH ×5 (00:21→23:29)
[2020-02-26] MEDS: METHYLPREDNISOLONE SOD SUCC IV SCH ×5 (00:21→23:29)
[2020-02-26] MEDS: BRIMONIDINE TARTRATE 0.2% OPH SOLN 5 ML OS SCH ×2 (00:22→12:44)
[2020-02-26] MEDS: PANTOPRAZOLE SODIUM 40 MG VIAL IV SCH ×2 (11:20→22:41)
[2020-02-26] MEDS: TIMOLOL MALEATE 0.5% OPH SOLN 5 ML OS SCH (12:45)
--- NOTE | 2020-02-26 15:15 | PDOC PROGRESS REPORT ---
Subjective Progress Note for:: 02/26/20 Subjective:: 02/25/2020 Patient admitted for left eye blindness with unclear etiology. Suspected left temporal arteritis and biopsy was done which is pending. Patient started on methylprednisolone IV. Possible patient has experienced an embolic event of cardiogenic origin, echocardiogram ordered today. Patient denies any history of atrial fibrillation or other arrhythmias. She denies taking any anticoagulants. Patient does endorse some bilateral jaw claudication over the past few weeks. Other than left eye blindness she has no new complaints. Of note, she is able to see very bright light when it is shined directly into her left eye, otherwise she is completely blind in this eye. Reportedly, ophthalmology is planning to see the patient today. 02/26/2020 Left eye blindness persists though patient states she can now see some shadows intermittently. Long discussion with the patient about ophthalmology findings and high likelihood that she has temporal arteritis regardless of what the biopsy shows. She will continue on high-dose IV steroids through tomorrow and she can be discharged tomorrow on 80 mg of oral prednisone as directed by ophthalmology. WBC elevated as expected on steroids. Patient has no new complaints otherwise. Reason For Visit: TEMPORAL ARTERITIS Physical Exam Vital Signs: Temp Pulse Resp BP Pulse Ox 97.5 F 81 18 146/64 H 97 02/26/20 12:01 02/26/20 12:01 02/26/20 12:01 02/26/20 12:01 02/26/20 12:01 Intake & Output 02/25/20 02/26/20 02/27/20 06:59 06:59 06:59 Intake Total 250 1850 Balance 250 1850 Weight 70.5 kg 70.6 kg General appearance: PRESENT: no acute distress, well-developed, well-nourished Head exam: PRESENT: atraumatic, normocephalic Eye exam: PRESENT: conjunctiva pink, EOMI. ABSENT: conjunctival injection, nystagmus, periorbital swelling, PERRLA, scleral icterus Mouth exam: PRESENT: moist Respiratory exam: PRESENT: clear to auscultation ab. ABSENT: rales, rhonchi, wheezes Cardiovascular exam: PRESENT: RRR. ABSENT: diastolic murmur, rubs, systolic murmur GI/Abdominal exam: PRESENT: normal bowel sounds, soft. ABSENT: distended, guarding, mass, organolmegaly, rebound, tenderness Musculoskeletal exam: PRESENT: ambulatory Neurological exam: PRESENT: alert, awake, oriented to person, oriented to place, oriented to time, oriented to situation Psychiatric exam: PRESENT: appropriate affect, normal mood Skin exam: PRESENT: dry, intact, warm Results Laboratory Results: 02/25/20 05:05 02/25/20 05:05 02/24/20 02/24/20 09:50 09:50 Creatine Kinase 34 Troponin I < 0.012 Impressions: Head CTA 02/24/20 00:00 IMPRESSION: NORMAL BRAIN CT WITH AND WITHOUT CONTRAST. NO CTA EVIDENCE OF STENOSIS OR ANEURYSM OF THE [place] OF [place]. EVIDENCE OF ACUTE STROKE: NO. Neck CTA 02/24/20 00:00 IMPRESSION: NORMAL CTA OF THE EXTRA-CRANIAL CAROTID AND VERTEBRAL ARTERIES. Chest X-Ray 02/24/20 10:00 IMPRESSION: Mild hyperexpansion with probable chronic pleural and parenchymal changes in the left base. Minimal superimposed left basilar atelectasis cannot be excluded. Assessment and Plan - Diagnosis (1) Vision loss of left eye Is this a current diagnosis for this admission?: Yes Plan: 02/24/2020-patient came in with acute left eye vision loss, ophthalmology consult was requested to arrange for the MRI of the brain without contrast, CT of the neck and head. Patient will be scheduled for temporal artery biopsy tomorrow. 02/25/2020 Possible cardiogenic embolic source, echocardiogram ordered Telemetry to monitor for arrhythmias Ophthalmology consulted, to see patient today CT head/neck with contrast did not show any focal stenoses May benefit from rheumatology consult outpatient 02/26/2020 Continue high-dose IV steroids until tomorrow and plan to discharge on 80 mg prednisone (2) GERD (gastroesophageal reflux disease) Is this a current diagnosis for this admission?: No (3) Temporal arteritis Is this a current diagnosis for this admission?: Yes Plan: 02/24/2020-patient is going to be admitted to telemetry as an inpatient for left- sided temporal arteritis and left eye blindness. Surgical consult was requested for biopsy, patient will be n.p.o. from midnight, patient is going to receive IV Solu-Medrol 125 mg every 6 hours, coronavirus testing will be done. Ophthalmology consult was requested. Patient started on GI prophylaxis 40 mg every 12 hours. Patient will be with SCDs no pharmacological prophylaxis initiated because of the impending surgery tomorrow. Patient denies any pain at the time of my examination. Fall precautions are requested. Physical therapy consult was requested. 02/25/2020 Suspected diagnosis, biopsy done pending Methylprednisolone IV continues 02/26/2020 Pathology still pending from Temporal artery biopsy - Time Time Spent with patient: 15-24 minutes Medications reviewed and adjusted accordingly: Yes Anticipated Discharge Disposition: Home, Self Care Anticipated Discharge Timeframe: within 48 hours - Inpatient Certification Based on my medical assessment, after consideration of the patient's comorbidities, presenting symptoms, or acuity I expect that the services needed warrant INPATIENT care.: Yes I certify that my determination is in accordance with my understanding of Medicare's requirements for reasonable and necessary INPATIENT services [42 CFR 412.3e].: Yes Medical Necessity: Significant Comorbidiites Make Outpatient Treatment Too Risky, Need Close Monitoring Due to Risk of Patient Decompensation, Risk of Complication if Not Cared For in Hospital, Risk of Diagnosis Which Will Require Inpatient Eval/Care/Monitoring
[2020-02-26] MEDS: BRIMONIDINE TARTRATE OU SCH (22:41)
[2020-02-26] MEDS: TIMOLOL OU SCH (22:41)
[2020-02-26] MEDS: EYE OU SCH (22:41)
[2020-02-27] MEDS: METHYLPREDNISOLONE SOD SUCC IV SCH ×3 (06:19→17:04)
[2020-02-27] MEDS: WATER IV SCH ×3 (06:19→17:04)
[2020-02-27] MEDS: DEXTROSE 5% IV SCH ×3 (06:19→17:04)
[2020-02-27] MEDS: PANTOPRAZOLE SODIUM 40 MG VIAL IV SCH (11:02)
[2020-02-27] MEDS: TIMOLOL OU SCH (11:03)
[2020-02-27] MEDS: BRIMONIDINE TARTRATE OU SCH (11:03)
[2020-02-27] MEDS: EYE OU SCH (11:03)
--- NOTE | 2020-02-27 14:17 | PDOC DISCHARGE SUMMARY ---
Impression - Admit/DC Date/PCP Admission Date/Primary Care Provider: 02/24/20 13:11 REY KRUEGER MD Discharge Date: 02/27/20 - Discharge Diagnosis (1) Vision loss of left eye Is this a current diagnosis for this admission?: Yes (2) GERD (gastroesophageal reflux disease) Is this a current diagnosis for this admission?: No (3) Temporal arteritis Is this a current diagnosis for this admission?: Yes (4) Jaw claudication Is this a current diagnosis for this admission?: Yes - Additional Information Resuscitation Status: Full Code Discharge Diet: Regular Discharge Activity: Activity As Tolerated, Balance Activity w/Rest, No Driving Referrals: REY KRUEGER MD [Primary Care Provider] - 03/05/20 2:15 pm SHELIA SOSA MD [ACTIVE STAFF] - 03/04/20 9:00 am Prescriptions: Prednisone [Deltasone 20 mg Tablet] 80 mg PO DAILY #56 tablet Home Medications: Pantoprazole Sodium 40 mg PO QHS 08/17/18 Brimonidine Tartrate/Timolol [Combigan 0.2%-0.5% Eye Drops] 1 drop OS Q12 02/24/20 Prednisone [Deltasone 20 mg Tablet] 80 mg PO DAILY #56 tablet 02/27/20 History of Present Illiness History of Present Illness: Per Admitting Physician: "KILO CAVAZOS is a 79 year old female With history of gastric with reflux disease, glaucoma came to the emergency room with complaints of left eye blindness started on Monday. Patient went to bed on night without any problems except for floaters in the left eye woke up on Monday morning with deterioration of the vision in the left eye. By the afternoon vision in the left eye is completely gone. Patient waiting till this morning to see the preventative maintenance technician and Dr. Darcie Sosa referred the patient to the hospital for admission and possible biopsy of the temporal artery tomorrow. ESR is 49. Patient denies any pain denies any tenderness over the scalp region only complaint is left eye blindness. She has minimal left jaw pain few days ago. Denies any headaches dizziness nausea vomiting's. She never had this problem before. Past medical history include glaucoma and a gastroesophageal reflux disease." Hospital Course Hospital Course: Patient admitted for sudden onset left eye blindness sent by preventative maintenance technician from clinic. Patient found to have elevated inflammatory markers with history of recent jaw claudication symptoms consistent with left temporal arteritis. Biopsy of left pleural artery done by general surgery and results pending at discharge. Ophthalmology consulted on patient in the hospital and per their exam stated patient likely has temporal arteritis regardless of what the biopsy result may be. Patient was given 3 days of high-dose IV steroids and discharged on 80 mg prednisone daily as outlined by ophthalmology. Patient needs follow-up with PCP, ophthalmology, and rheumatology. I recommended against driving. Also of note, patient had echocardiogram done here which did not show any thrombus or other specific abnormalities related to her blindness. The supervisor park workers who read her echocardiogram said she had normal LV systolic function with an EF of 60% and what they describe as possible grade 2 diastolic dysfunction. Patient has no symptoms of CHF and it is recommended that she follow-up with her PCP regarding this result. It may be worth repeating the echocardiogram to verify this result in the near future or at least getting a second opinion on the echocardiogram from a different supervisor park workers. Per ophthalmology: "I feel that this time that all diagnostic tests as well as labs and physical exam are consistent with a diagnosis of temporal arteritis. We are awaiting the pathology report of the temporal artery biopsy however even if this is negative I would continue with the presumptive diagnosis of temporal arteritis. due to her severe vision loss the recommendation is for 250 mg of Solu-Medrol every 6 hours for 3 days followed by 80 mg of oral prednisone on discharge. I would like to see Ms. Eric hill in 1 week and sooner should she note any changes in her right eye. On discharge she will need to have follow-up with her primary care provider Rey Krueger and subsequently a rheumatology consult after discharge. Please contact me if you have any additional questions please schedule a follow-up appointment in my office [phone] for 1 week following discharge." Physical Exam Vital Signs: Temp Pulse Resp BP Pulse Ox 97.5 F 82 18 140/61 H 97 02/27/20 10:00 02/27/20 08:16 02/27/20 08:16 02/27/20 08:16 02/27/20 08:16 Intake & Output 02/26/20 02/27/20 02/28/20 06:59 06:59 06:59 Intake Total 1850 1560 360 Balance 1850 1560 360 Weight 70.6 kg 70.6 kg General appearance: PRESENT: no acute distress, well-developed, well-nourished Head exam: PRESENT: atraumatic, normocephalic Eye exam: PRESENT: conjunctiva pink, other - Left eye visual acuity essentially blind. ABSENT: scleral icterus Mouth exam: PRESENT: moist Respiratory exam: PRESENT: clear to auscultation ab. ABSENT: rales, rhonchi, wheezes Cardiovascular exam: PRESENT: RRR. ABSENT: diastolic murmur, rubs, systolic murmur GI/Abdominal exam: PRESENT: normal bowel sounds, soft. ABSENT: distended, guarding, mass, organolmegaly, rebound, tenderness Neurological exam: PRESENT: alert, awake, oriented to person, oriented to place, oriented to time, oriented to situation Psychiatric exam: PRESENT: appropriate affect, normal mood Skin exam: PRESENT: dry, intact, warm Results Laboratory Results: WBC 12.3 10^3/uL (4.0-10.5) H 02/25/20 05:05 RBC 4.37 10^6/uL (3.72-5.28) 02/25/20 05:05 Hgb 12.6 g/dL (12.0-15.5) 02/25/20 05:05 Hct 37.3 % (36.0-47.0) 02/25/20 05:05 MCV 85 fl (80-97) 02/25/20 05:05 MCH 28.8 pg (27.0-33.4) 02/25/20 05:05 MCHC 33.7 g/dL (32.0-36.0) 02/25/20 05:05 RDW 13.3 % (11.5-14.0) 02/25/20 05:05 Plt Count 294 10^3/uL (150-450) 02/25/20 05:05 Lymph % (Auto) 10.2 % (13-45) L 02/25/20 05:05 [place] % (Auto) 1.7 % (3-13) L 02/25/20 05:05 Eos % (Auto) 0.0 % (0-6) 02/25/20 05:05 Baso % (Auto) 0.2 % (0-2) 02/25/20 05:05 Absolute Neuts (auto) 10.8 10^3/uL (1.7-8.2) H 02/25/20 05:05 Absolute Lymphs (auto) 1.3 10^3/uL (0.5-4.7) 02/25/20 05:05 Absolute Monos (auto) 0.2 10^3/uL (0.1-1.4) 02/25/20 05:05 Absolute Eos (auto) 0.0 10^3/uL (0.0-0.6) 02/25/20 05:05 Absolute Basos (auto) 0.0 10^3/uL (0.0-0.2) 02/25/20 05:05 Seg Neutrophils % 87.9 % (42-78) H 02/25/20 05:05 ESR 49 mm/hr (0-30) H 02/24/20 09:50 PT 14.3 SEC (11.4-15.4) 02/25/20 05:05 INR 1.09 02/25/20 05:05 Sodium 140.1 mmol/L (137-145) 02/25/20 05:05 Potassium 4.1 mmol/L (3.6-5.0) 02/25/20 05:05 Chloride 105 mmol/L (98-107) 02/25/20 05:05 Carbon Dioxide 26 mmol/L (22-30) 02/25/20 05:05 Anion Gap 9 (5-19) 02/25/20 05:05 BUN 15 mg/dL (7-20) 02/25/20 05:05 Creatinine 0.48 mg/dL (0.52-1.25) L 02/25/20 05:05 Est GFR ( Amer) > 60 (>60) 02/25/20 05:05 Est GFR (MDRD) Non-Af > 60 (>60) 02/25/20 05:05 Glucose 176 mg/dL (75-110) H 02/25/20 05:05 Hemoglobin A1c % 5.5 % (4.7-6.0) 02/25/20 05:05 Calcium 8.7 mg/dL (8.4-10.2) 02/25/20 05:05 Magnesium 2.1 mg/dL (1.6-2.3) 02/25/20 05:05 Total Bilirubin 0.3 mg/dL (0.2-1.3) 02/25/20 05:05 Direct Bilirubin 0.0 mg/dL (0.0-0.4) 02/25/20 05:05 Neonat Total Bilirubin Not Reportable 02/25/20 05:05 Neonat Direct Bilirubin Not Reportable 02/25/20 05:05 Neonat Indirect Bili Not Reportable 02/25/20 05:05 AST 21 U/L (14-36) 02/25/20 05:05 ALT 14 U/L (<35) 02/25/20 05:05 Alkaline Phosphatase 83 U/L (38-126) 02/25/20 05:05 Creatine Kinase 34 U/L (30-135) 02/24/20 09:50 Troponin I < 0.012 ng/mL 02/24/20 09:50 C-Reactive Protein 34.3 mg/L (<10.0) H 02/24/20 14:12 Total Protein 6.9 g/dL (6.3-8.2) 02/25/20 05:05 Albumin 3.5 g/dL (3.5-5.0) 02/25/20 05:05 Triglycerides 33 mg/dL (<150) 02/25/20 05:05 Cholesterol 133.86 mg/dL (0-200) 02/25/20 05:05 LDL Cholesterol Direct 56 mg/dL (<100) 02/25/20 05:05 VLDL Cholesterol 7.0 mg/dL (10-31) L 02/25/20 05:05 HDL Cholesterol 63 mg/dL (>40) 02/25/20 05:05 TSH 0.37 uIU/mL (0.47-4.68) L 02/25/20 05:05 Urine Color STRAW 02/24/20 10:07 Urine Appearance CLEAR 02/24/20 10:07 Urine pH 7.0 (5.0-9.0) 02/24/20 10:07 Ur Specific [place] 1.003 02/24/20 10:07 Urine Protein NEGATIVE mg/dL (NEGATIVE) 02/24/20 10:07 Urine Glucose (UA) NEGATIVE mg/dL (NEGATIVE) 02/24/20 10:07 Urine Ketones NEGATIVE mg/dL (NEGATIVE) 02/24/20 10:07 Urine Blood SMALL (NEGATIVE) H 02/24/20 10:07 Urine Nitrite NEGATIVE (NEGATIVE) 02/24/20 10:07 Urine Bilirubin NEGATIVE (NEGATIVE) 02/24/20 10:07 Urine Urobilinogen NEGATIVE mg/dL (<2.0) 02/24/20 10:07 Ur Leukocyte Esterase NEGATIVE (NEGATIVE) 02/24/20 10:07 Urine WBC (Auto) 0 /HPF 02/24/20 10:07 Urine RBC (Auto) 0 /HPF 02/24/20 10:07 Urine Mucus (Auto) RARE /LPF 02/24/20 10:07 Urine Ascorbic Acid NEGATIVE (NEGATIVE) 02/24/20 10:07 02/24/20 09:50 Troponin I < 0.012 Impressions: Head CTA 02/24/20 00:00 IMPRESSION: NORMAL BRAIN CT WITH AND WITHOUT CONTRAST. NO CTA EVIDENCE OF STENOSIS OR ANEURYSM OF THE [place] OF [place]. EVIDENCE OF ACUTE STROKE: NO. Neck CTA 02/24/20 00:00 IMPRESSION: NORMAL CTA OF THE EXTRA-CRANIAL CAROTID AND VERTEBRAL ARTERIES. Chest X-Ray 02/24/20 10:00 IMPRESSION: Mild hyperexpansion with probable chronic pleural and parenchymal changes in the left base. Minimal superimposed left basilar atelectasis cannot be excluded. Plan Time Spent: Greater than 30 Minutes Stroke Is this a Stroke Patient?: No Acute Heart Failure - Is this a Heart Failure Patient?: No
[2020-02-27 16:33] VITALS: BP 146/66
[2020-02-27] MEDS ORDERED: PANTOPRAZOLE SODIUM 40 MG TABLET.DR PO SCH (18:00)
== END 2020-02-27 17:30 | disposition home or self-care (01) | DRG 517 ==
LOC: ER 09:38 → EH 13:11 → 4N 14:31
PROVIDERS: ADMIT Internal Medicine; ATTEND Internal Medicine
PROC: 03BT0ZX Excision of Left Temporal Artery, Open Approach, Diagnostic (ICD-10-PCS; principal; 2020-02-24)
DX: M31.6 Other giant cell arteritis (principal); H54.62 Unqualified visual loss, left eye, normal vision right eye; I10 Essential (primary) hypertension; K21.9 Gastro-esophageal reflux disease without esophagitis; H40.9 Unspecified glaucoma; Z90.710 Acquired absence of both cervix and uterus; Z88.3 Allergy status to other anti-infective agents; Z91.011 Allergy to milk products
CPT/HCPCS: 36415; 70496; 70498; 71045; 80053; 80061; 81001; 82550; 83036; 83735; 84443; 84484; 85025; 85610; 85652; 86140; 88305; 93005; 93010; 93306; 96374; 99285; C9113; J2930; J3490; J7042; J7060